=== PATIENT | female | born 1960 | race Caucasian/White ===

== ENCOUNTER 2022-10-16 04:46 | Emergency (ER) | payer SELFPAY ==
[2022-10-16 04:53] VITALS: BMI 46.0
[2022-10-16 04:56] VITALS: BP 174/106; PULSE 88; RESP 16; TEMP 36.6; O2SAT 99
--- NOTE | 2022-10-16 05:29 | W.ED.EXTPRO ---
HPI - Extremity Problem General: Chief complaint: Extremity Problem,Nontraumatic Stated complaint: Gout Pain Time Seen by Provider: 10/16/22 04:53 Source: patient History of Present Illness: 62-year-old female with a history of gout. She presents with right great toe, and midfoot pain, redness, and mild swelling. She says its been there a couple of days. She is here from [place] on vacation. She is having problems bearing weight. No calf pain, redness or swelling. No other swelling to the lower extremity. No fever. MD Complaint: joint pain Onset (ago): day(s) (2) Pain Consistency: constant Location: right and toe Quality: burning and aching Radiation: none Relieving factors: nothing Exacerbating factors: weight bearing Associated symptoms: Reports rash (Mild redness over the joint); Deny chest pain, fever(s) or short of breath Review of Systems Const: Denies: fever(s) Card: Denies: chest pain Resp: Denies: dyspnea, productive cough or non-productive cough GI: Denies: abdominal pain, nausea or vomiting Skin/Breast: Reports: rash (Mild redness over the joint) Physical Exam Const: COMMON NORMALS: no acute distress HENMT: COMMON NORMALS: normocephalic, atraumatic and Normal external nose present HEAD & SCALP: normocephalic and atraumatic NOSE: Normal external nose present Eye: COMMON NORMALS: Equal, round and reactive pupils present and EOMs intact bilaterally PUPIL: Yes Equal, round and reactive pupils present Neck/C-Spine: GENERAL: Yes trachea midline Chest: CHEST: Yes Symmetrical chest wall rise Resp: COMMON NORMALS: normal respiratory effort, No use of accessory muscles and clear to auscultation bilaterally AUSCULTATION: clear to auscultation bilaterally Cardio: COMMON NORMALS: regular rate and regular rhythm RATE: regular rate RHYTHM: regular rhythm GI: COMMON NORMALS: Normal to inspection, nondistended, normoactive bowel sounds present Extremity: NARRATIVE EXTREMITY EXAM: Examination the right lower extremity reveals tenderness, mild redness, and mild warmth over the right first MTP. There is mild redness over the medial midfoot in that area with tenderness to palpation on the plantar surface. There is no edema of the leg. There is no calf tenderness or tightness no streaking redness. Pulses and capillary refill are normal. Neuro: MARICARMEN COMA SCALE: document GCS findings Maricarmen coma scale eye opening: Spontaneous Maricarmen coma scale verbal response: Orientated Maricarmen coma scale motor response: Obey commands Grethel coma scale total score: 15 Course Vital Signs: Vital signs: Vital Signs Temperature 97.8 F 10/16/22 04:56 Pulse Rate 88 10/16/22 04:56 Respiratory Rate 16 10/16/22 04:56 Blood Pressure 174/106 10/16/22 04:56 Pulse Oximetry 99 10/16/22 04:56 Oxygen Delivery Me thod Room Air 10/16/22 04:56 MDM - Extremity (Nontraumatic) Medical Decision Making Clinical gout to the right first MTP. No evidence of DVT or other pathology. No history or specific exam findings concerning for infection. Will treat with a pain pill here, dexamethasone and colchicine. Colchicine for home. Instructions given on how to use. She is worried about a yeast infection, which she sometimes gets when she gets placed on steroids, so she will be prescribed Diflucan. To return for any worsening or new symptoms. Discharge Plan Discharge Patient Disposition: Home Clinical Impression: Gout Condition: Stable Prescriptions: New colchicine 0.6 mg capsule 0.6 mg PO BID Qty: 20 0RF Diflucan 150 mg tablet 150 mg PO Q3D Qty: 2 0RF Discharge Orders: Discharge ED (Routine); Ordered 10/16/22 Ordered By: Adriel Babin Patient Instructions: Gout (ED), Opioid Safety, Pain Management Activity Restrictions/Additional Instructions: Take the colchicine 4 times daily for the next 2 days, then 3 times daily for 2 days, then twice daily. Return for fever, worsening pain, redness, or swelling despite treatment, other concerning symptoms. Coding Level of Care Code ED Enterprise Architect Manager for Aleida Shaw
[2022-10-16] MEDS: dexamethasone 4 mg Tablet 10 MG PO (05:32)
[2022-10-16] MEDS: colchicine 0.6 mg Tablet PO (05:33)
[2022-10-16] MEDS: HYDROcodone-acetaminophen 5-325 mg Tablet 1 TAB PO (05:34)
[2022-10-16 05:35] VITALS: BP 168/102; PULSE 85; RESP 18; TEMP 36.6; O2SAT 98
== END 2022-10-16 05:37 | disposition home or self-care (01) ==
PROVIDERS: Emergency Provider Emergency Medicine
DX: M10.9 Gout, unspecified (principal)
CPT/HCPCS: 99283; J8540

== ENCOUNTER 2023-08-28 12:19 | Emergency (ER) | payer BC, SELFPAY ==
--- NOTE | 2023-08-28 12:49 | XRR_ITS ---
PROCEDURE INFORMATION: Exam: XR Left Foot Exam date and time: 08/28/2023 1:42 PM Age: 62 years old Clinical indication: Pain; Foot; Left; Additional info: Foot pain, h/o gout TECHNIQUE: Imaging protocol: Radiologic exam of the left foot. Views: 3 or more views. COMPARISON: No relevant prior studies available. FINDINGS: Bones/joints: No fracture identified. There are chronic degenerative changes of the bones of the midfoot, most severe at the 1st metatarsal-medial cuneiform joint space. Soft tissues: There is soft tissue swelling along the dorsum of the left foot. No visible gas in the soft tissues. XR/XR foot LT min 3V* [id number] IMPRESSION: Chronic degenerative changes to the bones of the midfoot and soft tissue swelling along the dorsum of the left foot. No fracture is visualized
--- NOTE | 2023-08-28 12:49 | ED_ITS ---
HPI - Extremity Injury (Lower) General: Stated Complaint: left foot pain History of Present Illness: 62-year-old female presents emergency de partment with complaints of left foot pain. She states she does have a history of gout and was seen here in the emergency department in September 2022 for treatment of her gout. She received steroids and pain medications at that time. Review of Systems General: Reports: 10 or more systems reviewed and unremarkable except in HPI and below Musc: Reports: extremity pain, joint pain and joint swelling; Denies: joint redness or joint warmth Physical Exam Narrative: EXAM NARRATIVE: General: Alert, no acute distress. Skin: Warm, dry, Intact. Head: Normocephalic, atraumatic. Neck: Supple, trachea midline. Eye: Extraocular movements are intact. PERRLA Ears, nose, mouth and throat: mucosa moist. Cardiovascular: Regular, Normal peripheral perfusion. Respiratory: Lungs are clear to auscultation, respirations are non-labored, breath sounds are equal, Symmetrical chest wall expansion. Gastrointestinal: Soft, Nontender, Non distended, Normal bowel sounds. Musculoskeletal: Normal ROM, no deformity. Left foot pain Neurological: Alert and oriented, No focal neurological deficit observed. Psychiatric: Cooperative, appropriate mood & affect. MDM - Extremity Injury (Lower) Medical Decision Making Physical exam completed and documented I will obtain an x-ray of her left foot as well as a CBC and CMP. Medical Records I reviewed the patient's medical records. Discharge Plan Discharge Clinical Impression: Acute pain of left foot, Gout attack Condition: Stable Prescriptions: No Action colchicine 0.6 mg capsule 0.6 mg PO BID Qty: 20 0RF Diflucan 150 mg tablet 150 mg PO Q3D Qty: 2 0RF Coding Level of Care Code ED Pc Support Specialist for Aleida Shaw
[2023-08-28 12:51] VITALS: BP 144/84; PULSE 81; RESP 16; TEMP 36.6; O2SAT 97
== END 2023-08-28 15:21 | disposition left against medical advice (07) ==
PROVIDERS: Emergency Provider Family Medicine
DX: Z53.21 Procedure and treatment not carried out due to patient leaving prior to being seen by health care provider (principal)
CPT/HCPCS: 73630

== ENCOUNTER 2024-05-04 12:42 | Emergency (ER) | payer BC, SELFPAY ==
[2024-05-04 12:45] VITALS: BP 132/99; PULSE 99; RESP 36; TEMP 36.6; O2SAT 100; BMI 46.0
--- NOTE | 2024-05-04 12:46 | CTR_ITS ---
PROCEDURE INFORMATION: Exam: CT Abdomen And Pelvis Without Contrast Exam date and time: 05/04/2024 1:32 PM Age: 63 years old Clinical indication: Abdominal pain; Flank; Left; Additional info: Left flank pain TECHNIQUE: Imaging protocol: Computed tomography of the abdomen and pelvis without contrast. Radiation optimization: All CT scans at this facility use at least one of these dose optimization techniques: automated exposure control; mA and/or kV adjustment per patient size (includes targeted exams where dose is matched to clinical indication); or iterative reconstruction. COMPARISON: No relevant prior studies available. RADIATION DOSE METRICS: Total DLP (mGy-cm): 1349.64 FINDINGS: Lungs: The lung bases are clear bilaterally. Liver: Hepatomegaly with the liver measuring 20 cm. Diffuse hypoattenuation of the liver suggesting hepatic steatosis. Gallbladder and biliary ducts: Status post cholecystectomy. Pancreas: Normal. No ductal dilation. Spleen: Normal. No splenomegaly. Adrenal glands: Normal. No mass. Kidneys and ureters: Mild left renal edema with left perinephric stranding and left hydroureteronephrosis secondary to an obstructing 3 mm calculus in the proximal left ureter. Punctate nonobstructing nephrolithiasis in the bilateral kidneys. 2.6 cm simple cyst in the lower pole of the left kidney. Stomach and bowel: Moderate to severe colonic diverticulosis without evidence to suggest acute diverticulitis. Appendix: The appendix is partially air-filled and unremarkable. Intraperitoneal space: No intraperitoneal free air or fluid. Vasculature: Unremarkable. No abdominal aortic aneurysm. Lymph nodes: Unremarkable. No enlarged lymph nodes. Urinary bladder: Unremarkable as visualized. Reproductive: Unremarkable as visualized. Bones/joints: Mild multilevel degenerative disease of the thoracolumbar spine. Soft tissues: Unremarkable. CT/CT abdomen pelvis wo con [id number] IMPRESSION: 1. Mild left renal edema and perinephric stranding with mild left-sided hydroureteronephrosis secondary to an obstructing 3 mm proximal left ureteral calculus. 2. Punctate nonobstructing nephrolithiasis bilaterally. 3. Hepatomegaly with hepatic steatosis. 4. Moderate to severe colonic diverticulosis without evidence to suggest acute diverticulitis. COMMENTS: Consistent with the [employer]'s Incidental Findings Committee white paper (J Am Vashti Radiol 2018): Any incidental renal lesion less than 1 cm or classified as too small to characterize, or any incidental cystic renal lesion characterized as simple-appearing, is likely benign. No follow-up imaging is recommended for these lesions per consensus recommendations based on imaging criteria.
--- NOTE | 2024-05-04 12:59 | ED_ITS ---
HPI - Back Pain/Injury 2 General: Chief Complaint: Back Pain/Injury Stated Complaint: left flank pain Time Seen by Provider: 05/04/24 12:44 History of Present Illness: 63-year-old female with a history of uri nary tract infections, gout and obesity who presents emergency room with left flank pain. She says this started about 8:00 today. On presentation she is diaphoretic and very tachypneic. She says she feels like she is having hot flashes. She says this is similar to when she had UTI in the past. No known fevers. No altered mental status. She is having some nausea but no vomiting. Related Data Home Medications Medication Instructions Recorded Confirmed benazepril 20 mg tablet 20 mg PO DAILY 05/04/24 05/04/24 Previous Rx's Medication Instructions Recorded cefdinir 300 mg capsule 300 mg PO BID 7 days #14 caps 05/04/24 hydrocodone 5 mg-acetaminophen 325 1 tab PO Q6H PRN pain #20 tabs 05/04/24 mg tablet ondansetron 8 mg disintegrating 8 mg PO Q6H #14 tabs 05/04/24 tablet polyethylene glycol 3350 17 17 g PO DAILY #510 grams 05/04/24 gram/dose oral powder (Miralax) tamsulosin 0.4 mg capsule (Flomax) 0.4 mg PO DAILY #30 caps 05/04/24 Allergies Allergy/AdvReac Type Severity Reaction Status Date / Time Sulfa (Sulfonamide Allergy ADR-Vomitin Verified 05/04/24 12:55 Antibiotics) g Review of Systems 2 Narrative: Constitutional symptoms: Negative except as documented in HPI. Skin symptoms: Negative except as documented in HPI. Eye symptoms: Negative except as documented in HPI. ENMT symptoms: Negative except as documented in HPI. Respiratory symptoms: Negative except as documented in HPI. Cardiovascular symptoms: Negative except as documented in HPI. Gastrointestinal symptoms: Negative except as documented in HPI. Genitourinary symptoms: Negative except as documented in HPI. Musculoskeletal symptoms: Negative except as documented in HPI. Neurologic symptoms: Negative except as documented in HPI. Psychiatric symptoms: Negative except as documented in HPI. Endocrine symptoms: Negative except as documented in HPI. Physical Exam 2 Narrative: EXAM NARRATIVE: General: Alert, patient is writhing in pain in the bed. Skin: Warm, dry. Head: Normocephalic, atraumatic. Neck: Supple, trachea midline. Eye: Extraocular movements are intact. Ears, nose, mouth and throat: mucosa moist. Cardiovascular: Regular, Normal peripheral perfusion. Respiratory: Lungs are clear to auscultation, patient is tachypneic. Gastrointestinal: Soft, left flank pain, Non distended Musculoskeletal: Normal ROM, no deformity. Neurological: Alert and oriented, No focal neurological deficit observed. Psychiatric: Cooperative, appropriate mood & affect. Course 2 Vital Signs: Vital signs: Vital Signs Temperature 97.9 F 05/04/24 12:45 Pulse Rate 92 05/04/24 14:26 Respiratory Rate 16 05/04/24 14:26 Blood Pressure 149/92 05/04/24 14:26 Pulse Oximetry 100 05/04/24 14:26 Oxygen Delivery Me thod Nasal Cannula 05/04/24 14:26 Oxygen Flow Rate 2 05/04/24 14:26 MDM - Back Pain/Injury Medical Decision Making Medical decision making: Differential diagnosis including but not limited to and based on the above HPI, review of systems and physical exam: Ureterolithiasis. Urinary tract infection. Appendicitis. Cholecystis. Musculoskeletal / back pain. Pyelonephritis Orders placed to evaluate differential diagnosis based on the above differential, HPI and physical exam Lab Review: Laboratory results were reviewed and interpreted by myself the emergency room physician. No leukocytosis. No anemia. Mild bump in creatinine at 1.1. Glucose is slightly elevated at 167. Urinalysis shows definite infection. Nitrite positive. Leukocyte Estrace positive. 11-50 whites with only 10-20 reds. 4+ bacteria. CT of the abdomen pelvis without contrast: 3 mm proximal left stone with hydro and some perinephric stranding. Small punctate stones in the kidneys bilaterally. Hepatic steatosis. Diverticulosis without diverticulitis. This was reviewed and interpreted by myself the emergency room physician. I also reviewed the radiology report. I reviewed the patient's medical record. Reexamination: Patient remained stable. No increased work of breathing. No altered mental status. No focal motor deficits. Pain is somewhat improved. Consultation: I spoke with Dr. Bay Bingham, urologist out of [place] in [place]. Discussed findings. He agrees with giving Rocephin and placing on antibiotics and if the patient does develop with fever she will need to be admitted for stent but for now antibiotic coverage and urine screening is sufficient with follow-up with urology. Assessment and plan: Ureterolithiasis Urinary tract infection Dehydration ?IV Dilaudid, IV Zofran, normal saline bolus, IV Rocephin. - Discharged home - Discussed findings and plan with patient. Answered any questions. - All laboratory values were reviewed and interpreted personally by myself, the ER physician - All imaging was reviewed and interpreted personally by myself, the ER physician. - Evaluation and treatment of this problem were appropriate in the emergency setting Labs 05/04/24 13:10 05/04/24 13:10 Radiology Impressions Abdomen/Pelvis CT 05/04/24 12:46 IMPRESSION: 1. Mild left renal edema and perinephric stranding with mild left-sided hydroureteronephrosis secondary to an obstructing 3 mm proximal left ureteral calculus. 2. Punctate nonobstructing nephrolithiasis bilaterally. 3. Hepatomegaly with hepatic steatosis. 4. Moderate to severe colonic diverticulosis without evidence to suggest acute diverticulitis. COMMENTS: Consistent with the [employer]'s Incidental Findings Committee white paper (J Am Vashti Radiol 2018): Any incidental renal lesion less than 1 cm or classified as too small to characterize, or any incidental cystic renal lesion characterized as simple-appearing, is likely benign. No follow-up imaging is recommended for these lesions per consensus recommendations based on imaging criteria. Laboratory Results WBC 6.11 10^3/uL (3.29-11.43) 05/04/24 13:10 RBC 4.07 10^6/uL (3.85-5.65) 05/04/24 13:10 Hgb 13.20 g/dL (11.27-16.99) 05/04/24 13:10 Hct 38.0 % (36-47) 05/04/24 13:10 MCV 93.4 fl (85-98) 05/04/24 13:10 MCH 32.4 pg (27-33) 05/04/24 13:10 MCHC 34.7 g/dL (30-55) 05/04/24 13:10 RDW 13.4 % (12.1-15.1) 05/04/24 13:10 Plt Count 194 10^3/cmm (157-399) 05/04/24 13:10 MPV 10.8 fL (7.4-10.4) H 05/04/24 13:10 Neut % (Auto) 63.7 % 05/04/24 13:10 Lymph % (Auto) 29.8 % 05/04/24 13:10 Cloud % (Auto) 5.1 % 05/04/24 13:10 Eos % (Auto) 0.8 % 05/04/24 13:10 Baso % (Auto) 0.3 % 05/04/24 13:10 Neut # (Auto) 3.89 10^3/uL (1.8-7.7) 05/04/24 13:10 Lymph # (Auto) 1.8 10^3/uL (0.8-4.8) 05/04/24 13:10 Cloud # (Auto) 0.3 10^3/uL (0.2-0.9) 05/04/24 13:10 Eos # (Auto) 0.1 10^3/uL (0.0-0.8) 05/04/24 13:10 Baso # (Auto) 0.0 10^3/uL (0.0-0.1) 05/04/24 13:10 Nucleated RBC % (auto) 0 % 05/04/24 13:10 Nucleated RBCs # 0.0 /100WBC 05/04/24 13:10 Sodium 138 mmol/L (136-145) 05/04/24 13:10 Potassium 3.5 mmol/L (3.5-5.1) 05/04/24 13:10 Chloride 92 mmol/L (98-107) L 05/04/24 13:10 Carbon Dioxide 19 mmol/L (22-29) L 05/04/24 13:10 Anion Gap 30.5 (5-19) H 05/04/24 13:10 BUN 12 mg/dL (8-23) 05/04/24 13:10 Creatinine 1.1 mg/dL (0.5-0.9) H 05/04/24 13:10 GFR Calculation 50.2 mL/min (90-130) L 05/04/24 13:10 Glucose 167 mg/dL (65-115) H 05/04/24 13:10 Calculated Osmolality 290 mOsm/kg (285-295) 05/04/24 13:10 Lactic Acid 4.0 mmol/L (0.5-2.2) H 05/04/24 13:10 Lactic Acid (Sepsis) 2.9 mmol/L (0.5-2.2) H 05/04/24 15:52 Calcium 9.2 mg/dL (8.5-10.5) 05/04/24 13:10 Total Bilirubin 0.6 mg/dL (0.15-1.2) 05/04/24 13:10 AST 12 U/L (0-32) 05/04/24 13:10 ALT 11 U/L (0-33) 05/04/24 13:10 Alkaline Phosphatase 108 U/L (35-105) H 05/04/24 13:10 C-Reactive Protein 8.9 mg/L (0.0-4.9) H 05/04/24 13:10 Total Protein 7.4 g/dL (6.6-8.7) 05/04/24 13:10 Albumin 4.0 g/dL (3.5-5.2) 05/04/24 13:10 Globulin 3.4 g/dL (1.3-4.6) 05/04/24 13:10 Urine Color Yellow (Yellow) 05/04/24 14:04 Urine Appearance Cloudy (CLEAR) A 05/04/24 14:04 Urine pH 6.5 (5-7) 05/04/24 14:04 Ur Specific [place] 1.016 (1.005-1.030) 05/04/24 14:04 Urine Protein Trace (Negative) A 05/04/24 14:04 Urine Glucose (UA) Negative (Normal) 05/04/24 14:04 Urine Ketones Negative (Negative) 05/04/24 14:04 Urine Blood 2+ (Negative) A 05/04/24 14:04 Urine Nitrate Positive (Negative) A 05/04/24 14:04 Urine Bilirubin Negative (Negative) 05/04/24 14:04 Urine Urobilinogen 1.0 mg/dL (Negative) 05/04/24 14:04 Ur Leukocyte Esterase 2+ (Negative) A 05/04/24 14:04 Urine RBC 11-20 /hpf (0-2) H 05/04/24 14:04 Urine WBC 51-100 /hpf (0-5) H 05/04/24 14:04 Ur Squamous Epith Cells 0-5 /hpf (0-5) 05/04/24 14:04 Amorphous Sediment Not Reportable 05/04/24 14:04 Urine Bacteria 4+ /hpf (NONE) H 05/04/24 14:04 Hyaline Casts 6.17 /lpf 05/04/24 14:04 All radiology interpretation(s) finalized by discharge Discharge Plan Discharge Patient Disposition: Home Clinical Impression: Ureterolithiasis, Urinary tract infection Condition: Stable Prescriptions: New hydrocodone-acetaminophen 5-325 mg tablet 1 tab PO Q6H PRN (Reason: pain) Qty: 20 0RF ondansetron 8 mg tablet,disintegrating 8 mg PO Q6H Qty: 14 0RF Rx Instructions: Take 1/2-1 tab every 6 hours as needed for nausea and vomiting tamsulosin [Flomax] 0.4 mg capsule 0.4 mg PO DAILY Qty: 30 0RF polyethylene glycol 3350 [Miralax] 17 gram/dose powder 17 g PO DAILY Qty: 510 0RF Rx Instructions: Take 1 scoop daily while taking pain medications. cefdinir 300 mg capsule 300 mg PO BID 7 Days Qty: 14 0RF No Action benazepril 20 mg tablet 20 mg PO DAILY Discharge Orders: Discharge ED (Routine); Ordered 05/04/24 Ordered By: Anamika Elkins Referrals: Bay Moreno MD [Referring] - 4-7 days (Please strain your urine and try to collect kidney stone. Call for an appointment either with Dr. Moreno or with urologist of your choosing.) Discharge Diet: Usual diet Discharge Activity: Increase activity as tolerated Patient Instructions: Kidney Stones (ED), How to Strain Your Urine (ED), Opioid Safety, Pain Management Activity Restrictions/Additional Instructions: Call for appointment with urology. If fever (temp >100.4) develops return to the emergency room immediately, as this is an emergency. Take nausea medication prior to taking pain medications. Thank you for choosing [facility] for your healthcare needs today. Please realize this is an emergency room and that we are providing you with a medical screening exam and this may not be complete and all inclusive of all the testing and or work up that you may need to determine your ailment or severity of your illness. You have been screened and evaluated and felt safe for discharge. Health conditions do change or evolve sometimes and as such it is important that you follow up with your Primary Doctor to be re checked, 3-5 days is a general good time frame for follow up. You are always welcome to return to the ED for re assessment if your symptoms are worsening or you have new concerns Coding Level of Care Code ED Straight Knife Machine Cutter for Aleida Shaw
[2024-05-04 13:17] VITALS: RESP 30
[2024-05-04] MEDS: ondansetron 2 mg/ML SDV 2 mL 4 MG IVP (13:17)
[2024-05-04] MEDS: HYDROmorphone 1 mg/mL INJ 1 mL IVP (13:17)
[2024-05-04 13:18] VITALS: BP 159/125; PULSE 93; O2SAT 100
[2024-05-04 13:23] LABS: Basophils % 0.3 %; Eosinophils # 0.1 10^3/uL (0.0-0.8); Eosinophils % 0.8 %; Lymphocytes # 1.8 10^3/uL (0.8-4.8); Lymphocytes % 29.8 %; Mean Corpuscular HGB Conc 34.7 g/dL (30-55); Mean Corpuscular Hemoglobin 32.4 pg (27-33); Mean Corpuscular Volume 93.4 fl (85-98); Mean Platelet Volume 10.8 fL (7.4-10.4); Monocytes # 0.3 10^3/uL (0.2-0.9); Monocytes % 5.1 %; Neutrophils # 3.89 10^3/uL (1.8-7.7); Neutrophils % 63.7 %; Nucleated Red Blood Cells % 0 %; Platelet Count 194 10^3/cmm (157-399); Red Blood Count 4.07 10^6/uL (3.85-5.65); Red Cell Distribution Width 13.4 % (12.1-15.1); White Blood Count 6.11 10^3/uL (3.29-11.43)
[2024-05-04 13:44] LABS: Alanine Aminotransferase 11 U/L (0-33); Alkaline Phosphatase 108 U/L (35-105); Anion Gap 30.5 (5-19); Aspartate Amino Transferase 12 U/L (0-32); Blood Urea Nitrogen 12 mg/dL (8-23); C Reactive Protein 8.9 mg/L (0.0-4.9); Calcium 9.2 mg/dL (8.5-10.5); Carbon Dioxide 19 mmol/L (22-29); Chloride 92 mmol/L (98-107); Creatinine Clr Calc Pharmacy 79.6047; Globulin 3.4 g/dL (1.3-4.6); Glomerular Filtration Rate 50.2 mL/min (90-130); Glucose 167 mg/dL (65-115); Osmolality Calculated 290 mOsm/kg (285-295); Potassium 3.5 mmol/L (3.5-5.1); Sodium 138 mmol/L (136-145); Total Bilirubin 0.6 mg/dL (0.15-1.2); Total Protein 7.4 g/dL (6.6-8.7)
[2024-05-04 14:09] LABS: Bilirubin Urine Negative (Negative); Blood Urine 2+ (Negative); Glucose Urine UA Negative (Normal); Ketones Urine Negative (Negative); Leukocyte Esterase Urine 2+ (Negative); Nitrate Urine Positive (Negative); Protein Urine Trace (Negative); Specific Gravity, Urine 1.016 (1.005-1.030); Urine Appearance Cloudy (CLEAR); Urine Color Yellow (Yellow); pH Urine 6.5 (5-7)
[2024-05-04 14:14] LABS: Bacteria Urine 4+ /hpf; Hyaline Casts Urine 6.17 /lpf; Squamous Epithelial Cell Urine 0-5 /hpf (0-5); WBC Urine 51-100 /hpf (0-5)
[2024-05-04] MEDS: cefTRIAXone 1,000 mg SDV 1000 MG IVP (14:25)
[2024-05-04 14:26] VITALS: BP 149/92; PULSE 92; RESP 16; O2SAT 100
[2024-05-04 14:26] LABS: Add Urine Culture? Yes; UA Slide Review UA Slide Review Perf
[2024-05-04] MEDS: sodium chloride 0.9% 1,000 ML 999 ML IV (14:39)
[2024-05-04 14:57] LABS: Reflex Lactate Order REFLEX LACTIC ORDERD
[2024-05-04 16:21] LABS: Lactic Acid level (Lactate) 2.9 mmol/L (0.5-2.2)
[2024-05-04 16:58] VITALS: BP 134/87; PULSE 104; RESP 16; O2SAT 97
[2024-05-04 17:45] VITALS: BP 128/82; PULSE 102; O2SAT 100
== END 2024-05-04 17:48 | disposition home or self-care (01) ==
PROVIDERS: Emergency Provider Emergency Medicine
DX: N20.1 Calculus of ureter (principal); N39.0 Urinary tract infection, site not specified
CPT/HCPCS: 36415; 74176; 80053; 81001; 83605; 85025; 86140; 87040; 87077; 87086; 87150; 87186; 87205; 96374; 96375; 99285; J0696; J1171; J2405; J7030

== ENCOUNTER 2024-05-12 08:09 | Emergency (ER) | payer BC, SELFPAY ==
--- NOTE | 2024-05-12 08:10 | CT_ITS ---
WS: [id number] CT ABDOMEN PELVIS TECHNIQUE: Noncontrast CT of the abdomen and pelvis with coronal and sagittal reformatted images. CLINICAL INFORMATION: Renal stone positive blood culture/urine culture COMPARISON: CT 05/04/2024 DLP: 1392.[address] scans at [facility] use at least one of these dose optimization techniques: automated e xposure control; mA and/or kV adjustment per patient size (includes targeted exams where dose is matc hed to clinical indication); or iterative reconstruction. FINDINGS: Previously described obstructing LEFT proximal ureteral calculus appears to have passed com pared to previous. LEFT hydronephrosis is improved and nearly resolved. Mild residual pelvicaliectasi s. No obstructing LEFT renal or ureteral calculi today. A few tiny nonobstructing calyceal tip calcul i bilaterally. Tiny LEFT adrenal adenoma. RIGHT adrenal gland is normal. No hydronephrosis in the RIG HT kidney. Prior cholecystectomy. Lung bases are well aerated. Tiny esophageal hernia. Aortic calcification. Non contrast pancreas is normal. Sigmoid diverticulosis. Normal appendix in the RIGHT lower quadrant. Tin y fat-containing umbilical hernia. Moderate spondylitic changes lumbar spine. No free fluid in the ab domen or pelvis. Prior hysterectomy. CT/CT kidney stone [id number] IMPRESSION: 1. Previously described LEFT proximal ureteral calculus appears to have passed . LEFT hydronephrosis has nearly resolved. Residual LEFT renal pelvicaliectasis . 2. Nonobstructing calyceal tip calculi bilaterally. 3. Prior cholecystectomy and hysterectomy. 4. Sigmoid diverticulosis.
--- NOTE | 2024-05-12 08:11 | ED_ITS ---
HPI - General Adult 2 General: Chief complaint: Recheck/Abnormal Lab/Rx Stated complaint: abnormal labs Time Seen by Provider: 05/12/24 08:09 History of Present Illness: 63-year-old female presents to the emerg ency room after call back on a culture. I reviewed cultures this morning. Urine grew out E. coli in the same setting her blood culture is also growing out E. coli. I reviewed the chart and found that she had a 3 mm partially obstructing ureteral stone. She was discharged home on cefdinir. The original cultures from May 04. Both the blood and urine cultures were pansensitive. Patient reports that she believes she passed the kidney stone. She is no longer having any pain she has not had any fever sweats or chills. She is mildly tachycardic on arrival. Associated symptoms: Deny chest pain, dyspnea or rash Related Data Home Medications Medication Instructions Recorded Confirmed benazepril 20 mg tablet 20 mg PO DAILY 05/04/24 05/12/24 Previous Rx's Medication Instructions Recorded hydrocodone 5 mg-acetaminophen 325 1 tab PO Q6H PRN pain #20 tabs 05/04/24 mg tablet ondansetron 8 mg disintegrating 8 mg PO Q6H #14 tabs 05/04/24 tablet polyethylene glycol 3350 17 17 g PO DAILY #510 grams 05/04/24 gram/dose oral powder (Miralax) tamsulosin 0.4 mg capsule (Flomax) 0.4 mg PO DAILY #30 caps 05/04/24 cefdinir 300 mg capsule 300 mg PO BID 7 days #14 caps 05/12/24 Allergies Allergy/AdvReac Type Severity Reaction Status Date / Time Sulfa (Sulfonamide Allergy ADR-Vomitin Verified 05/04/24 12:55 Antibiotics) g Review of Systems 2 Const: Denies: fever(s) or chills Card: Denies: chest pain Resp: Denies: dyspnea GI: Denies: abdominal pain : Denies: dysuria, urinary frequency or urinary urgency Musc: Denies: neck pain or back pain Skin/Breast: Denies: rash Physical Exam 2 Const: COMMON NORMALS: no acute distress GENERAL APPEARANCE: cooperative and comfortable ORIENTATION/CONSCIOUSNESS: Yes awake, Yes oriented to person, Yes oriented to place and Yes oriented to time HENMT: COMMON NORMALS: normocephalic, atraumatic and hearing grossly normal bilaterally HEAD & SCALP: normocephalic and atraumatic Resp: COMMON NORMALS: normal respiratory effort, No retractions, No use of accessory muscles and clear to auscultation bilaterally AUSCULTATION: clear to auscultation bilaterally Cardio: COMMON NORMALS: regular rate, regular rhythm and No murmurs present (Cardio) RATE: regular rate RHYTHM: regular rhythm GI: COMMON NORMALS: Soft to palpation and No hepatosplenomegaly present A USCULTATION: Yes normoactive bowel sounds PALPATION: Yes Soft to palpation, No Tenderness to palpation present (GI), No Guarding due to palpation present (GI) and Yes No hepatosplenomegaly present Extremity: COMMON NORMALS: normal to inspection, capillary refill normal, no clubbing, cyanosis or edema, no calf tenderness and no pedal edema Neuro: SENSORIUM/ORIENTATION: Yes oriented to person, Yes oriented to place and Yes oriented to time Skin: COMMON NORMALS: no rashes or lesions noted GENERAL SKIN EXAM: no rashes or lesions noted Course 2 Vital Signs: Vital signs: Vital Signs Temperature 97.6 F 05/12/24 08:41 Pulse Rate 72 05/12/24 10:50 Respiratory Rate 18 05/12/24 08:41 Blood Pressure 124/75 05/12/24 10:50 Pulse Oximetry 98 05/12/24 10:50 Oxygen Delivery Me thod Room Air 05/12/24 10:10 MDM - General Adult Medical Decision Making In reviewing cultures it was found that the patient had blood and urine cultures that were positive had been discharged home on cefdinir. It appears she has passed a stone her white count is normalized and her urine is clear. We did get repeat blood cultures she is otherwise feeling fine at this point she does not appear to be septic. Will discharge home on cefdinir continue that since it seems to have cleared her will follow-up with her blood cultures. Medical Records I reviewed the patient's medical records. Lab Data I reviewed the patient's lab results. 05/12/24 09:02 05/12/24 09:02 Radiology Impressions Abdomen/Pelvis CT 05/12/24 08:10 IMPRESSION: 1. Previously described LEFT proximal ureteral calculus appears to have passed. LEFT hydronephrosis has nearly resolved. Residual LEFT renal pelvicaliectasis. 2. Nonobstructing calyceal tip calculi bilaterally. 3. Prior cholecystectomy and hysterectomy. 4. Sigmoid diverticulosis. Laboratory Results WBC 6.79 10^3/uL (3.29-11.43) 05/12/24 09:02 RBC 3.75 10^6/uL (3.85-5.65) L 05/12/24 09:02 Hgb 12.00 g/dL (11.27-16.99) 05/12/24 09:02 Hct 36.8 % (36-47) 05/12/24 09:02 MCV 98.1 fl (85-98) H 05/12/24 09:02 MCH 32.0 pg (27-33) 05/12/24 09:02 MCHC 32.6 g/dL (30-55) 05/12/24 09:02 RDW 13.4 % (12.1-15.1) 05/12/24 09:02 Plt Count 221 10^3/cmm (157-399) 05/12/24 09:02 MPV 11.0 fL (7.4-10.4) H 05/12/24 09:02 Neut % (Auto) 60.4 % 05/12/24 09:02 Lymph % (Auto) 31.5 % 05/12/24 09:02 [place] % (Auto) 6.2 % 05/12/24 09:02 Eos % (Auto) 1.0 % 05/12/24 09:02 Baso % (Auto) 0.3 % 05/12/24 09:02 Neut # (Auto) 4.10 10^3/uL (1.8-7.7) 05/12/24 09:02 Lymph # (Auto) 2.1 10^3/uL (0.8-4.8) 05/12/24 09:02 [place] # (Auto) 0.4 10^3/uL (0.2-0.9) 05/12/24 09:02 Eos # (Auto) 0.1 10^3/uL (0.0-0.8) 05/12/24 09:02 Baso # (Auto) 0.0 10^3/uL (0.0-0.1) 05/12/24 09:02 Nucleated RBC % (auto) 0 % 05/12/24 09:02 Nucleated RBCs # 0.0 /100WBC 05/12/24 09:02 Sodium 139 mmol/L (136-145) 05/12/24 09:02 Potassium 3.3 mmol/L (3.5-5.1) L 05/12/24 09:02 Chloride 102 mmol/L (98-107) 05/12/24 09:02 Carbon Dioxide 23 mmol/L (22-29) 05/12/24 09:02 Anion Gap 17.3 (5-19) 05/12/24 09:02 BUN 10 mg/dL (8-23) 05/12/24 09:02 Creatinine 1.0 mg/dL (0.5-0.9) H 05/12/24 09:02 GFR Calculation 56.0 mL/min (90-130) L 05/12/24 09:02 Glucose 124 mg/dL (65-115) H 05/12/24 09:02 Calculated Osmolality 288 mOsm/kg (285-295) 05/12/24 09:02 Lactic Acid 2.0 mmol/L (0.5-2.2) 05/12/24 09:02 Calcium 9.1 mg/dL (8.5-10.5) 05/12/24 09:02 Total Bilirubin 0.2 mg/dL (0.15-1.2) 05/12/24 09:02 AST 11 U/L (0-32) 05/12/24 09:02 ALT 10 U/L (0-33) 05/12/24 09:02 Alkaline Phosphatase 85 U/L (35-105) 05/12/24 09:02 Total Protein 6.7 g/dL (6.6-8.7) 05/12/24 09:02 Albumin 3.6 g/dL (3.5-5.2) 05/12/24 09:02 Globulin 3.1 g/dL (1.3-4.6) 05/12/24 09:02 Urine Color Yellow (Yellow) 05/12/24 09:54 Urine Appearance Clear (CLEAR) 05/12/24 09:54 Urine pH 6.0 (5-7) 05/12/24 09:54 Ur Specific Agenda 1.017 (1.005-1.030) 05/12/24 09:54 Urine Protein Negative (Negative) 05/12/24 09:54 Urine Glucose (UA) Negative (Normal) 05/12/24 09:54 Urine Ketones Negative (Negative) 05/12/24 09:54 Urine Blood 1+ (Negative) A 05/12/24 09:54 Urine Nitrate Negative (Negative) 05/12/24 09:54 Urine Bilirubin Negative (Negative) 05/12/24 09:54 Urine Urobilinogen 1.0 mg/dL (Negative) 05/12/24 09:54 Ur Leukocyte Esterase Negative (Negative) 05/12/24 09:54 Urine RBC 3-5 /hpf (0-2) 05/12/24 09:54 Urine WBC 0-5 /hpf (0-5) 05/12/24 09:54 Ur Squamous Epith Cells 0-5 /hpf (0-5) 05/12/24 09:54 Amorphous Sediment Not Reportable 05/12/24 09:54 Urine Bacteria None seen /hpf (NONE) 05/12/24 09:54 Hyaline Casts 0.81 /lpf 05/12/24 09:54 All radiology interpretation(s) finalized by discharge Discharge Plan Discharge Patient Disposition: Home Clinical Impression: Bacteremia due to Escherichia coli, Left nephrolithiasis, Cystitis Condition: Stable Prescriptions: New cefdinir 300 mg capsule 300 mg PO BID 7 Days Qty: 14 0RF No Action benazepril 20 mg tablet 20 mg PO DAILY hydrocodone-acetaminophen 5-325 mg tablet 1 tab PO Q6H PRN (Reason: pain) Qty: 20 0RF ondansetron 8 mg tablet,disintegrating 8 mg PO Q6H Qty: 14 0RF Rx Instructions: Take 1/2-1 tab every 6 hours as needed for nausea and vomiting tamsulosin [Flomax] 0.4 mg capsule 0.4 mg PO DAILY Qty: 30 0RF polyethylene glycol 3350 [Miralax] 17 gram/dose powder 17 g PO DAILY Qty: 510 0RF Rx Instructions: Take 1 scoop daily while taking pain medications. Discharge Orders: Discharge ED (Routine); Ordered 05/12/24 Ordered By: Raul Doshi Discharge Diet: Usual diet Discharge Activity: Resume usual activity Patient Instructions: Opioid Safety, Pain Management Activity Restrictions/Additional Instructions: Thank you for choosing [facility] for your healthcare needs today. It is very important that you follow up as instructed or that you return to the Emergency Department should you have concerns or if your condition changes or worsens in any way. You were evaluated in the emergency room due to a positive blood culture from your last visit. Your white count today was normal the urine infection has cleared and the stone is no longer present on the left ureter. Recommend that you take another 7 days of oral antibiotics until we get this second blood culture back. If you have fever return to the emergency room. Coding Level of Care Code ED Logistic Specialist for Aleida Shaw
[2024-05-12 08:41] VITALS: BP 145/117; PULSE 102; RESP 18; TEMP 36.4; O2SAT 96
[2024-05-12 09:17] LABS: Basophils % 0.3 %; Eosinophils # 0.1 10^3/uL (0.0-0.8); Hematocrit 36.8 % (36-47); Lymphocytes # 2.1 10^3/uL (0.8-4.8); Lymphocytes % 31.5 %; Mean Corpuscular HGB Conc 32.6 g/dL (30-55); Mean Corpuscular Volume 98.1 fl (85-98); Monocytes # 0.4 10^3/uL (0.2-0.9); Monocytes % 6.2 %; Neutrophils % 60.4 %; Nucleated Red Blood Cells % 0 %; Platelet Count 221 10^3/cmm (157-399); Red Blood Count 3.75 10^6/uL (3.85-5.65); Red Cell Distribution Width 13.4 % (12.1-15.1); White Blood Count 6.79 10^3/uL (3.29-11.43)
[2024-05-12 09:37] LABS: Alanine Aminotransferase 10 U/L (0-33); Albumin Level 3.6 g/dL (3.5-5.2); Alkaline Phosphatase 85 U/L (35-105); Anion Gap 17.3 (5-19); Aspartate Amino Transferase 11 U/L (0-32); Blood Urea Nitrogen 10 mg/dL (8-23); Calcium 9.1 mg/dL (8.5-10.5); Carbon Dioxide 23 mmol/L (22-29); Chloride 102 mmol/L (98-107); Creatinine Clr Calc Pharmacy 87.5652; Globulin 3.1 g/dL (1.3-4.6); Glucose 124 mg/dL (65-115); Osmolality Calculated 288 mOsm/kg (285-295); Potassium 3.3 mmol/L (3.5-5.1); Sodium 139 mmol/L (136-145); Total Bilirubin 0.2 mg/dL (0.15-1.2); Total Protein 6.7 g/dL (6.6-8.7)
[2024-05-12 10:04] LABS: Bilirubin Urine Negative (Negative); Blood Urine 1+ (Negative); Glucose Urine UA Negative (Normal); Ketones Urine Negative (Negative); Leukocyte Esterase Urine Negative (Negative); Nitrate Urine Negative (Negative); Protein Urine Negative (Negative); Specific Gravity, Urine 1.017 (1.005-1.030); Urine Appearance Clear (CLEAR); Urine Color Yellow (Yellow)
[2024-05-12 10:10] VITALS: BP 137/86; PULSE 68; O2SAT 96
[2024-05-12 10:10] LABS: Add Urine Microscopic? YES; Bacteria Urine None Seen /hpf; Hyaline Casts Urine 0.81 /lpf; Squamous Epithelial Cell Urine 0-5 /hpf (0-5); WBC Urine 0-5 /hpf (0-5)
[2024-05-12 10:19] LABS: UA Slide Review UA Slide Review Perf
[2024-05-12 10:49] VITALS: BP 124/75; PULSE 72; O2SAT 98
[2024-05-12 10:50] VITALS: BP 124/75; PULSE 72; O2SAT 98
== END 2024-05-12 11:02 | disposition home or self-care (01) ==
PROVIDERS: Emergency Provider Family Medicine
DX: R78.81 Bacteremia (principal); N20.0 Calculus of kidney; N30.90 Cystitis, unspecified without hematuria
CPT/HCPCS: 36415; 74176; 80053; 81001; 83605; 85025; 87040; 99284